=== PATIENT | male | born 1975 | race Hispanic/Latino ===

== ENCOUNTER 2021-03-04 15:05 | Emergency (ER) | payer BC ==
[~2021-03-04] VITALS: Ht 170.2 cm; Wt 86.2 kg
[2021-03-04] MEDS ORDERED: MECLIZINE HCL12.5 MG PO (16:24)
== END 2021-03-04 16:53 | disposition home or self-care (01) ==
LOC: FSED 15:38
DX: S09.90XA Unspecified injury of head, initial encounter (principal); R42 Dizziness and giddiness; W19.XXXA Unspecified fall, initial encounter
CPT/HCPCS: 70450; 99283